=== PATIENT | female | born 1955 | race Caucasian/White ===

== ENCOUNTER → 2017-09-15 | Outpatient (CLI) | payer BC, OTHER ==
[~2017-09-15] MED LIST: ACET-1138 PO; ACET-1256 PO; APRE1TAB3 PO; ASPEC81 PO; AUGMENTIN PO; CHOL1000 PO; CHOL100010 PO; CLB/200 PO; CLC100 PO; CRS/10 PO; HYDR200T5 PO; IRON TAB PO; LORA-741 PO; MUCINEX PO; OXYSR10 PO; RXC5 PO
[2017-09-16 15:54] LABS: COMPLEMENT C3 TC 44859W 151 MG/DL (90-180); COMPLEMENT C4 TC 44982E 35 MG/DL (16-47)
== END | disposition home or self-care (01) ==
LOC: C.LAB 10:06
PROVIDERS: ATTEND Internal Medicine Rheumatology
DX: R79.89 Other specified abnormal findings of blood chemistry (principal); R53.83 Other fatigue; L40.59 Other psoriatic arthropathy; Z51.81 Encounter for therapeutic drug level monitoring; Z79.899 Other long term (current) drug therapy; E55.9 Vitamin D deficiency, unspecified

== ENCOUNTER 2017-10-05 08:38 | Inpatient (IN) | payer BC, OTHER ==
[2017-09-15 10:34] VITALS: BMI 27.0
--- NOTE | 2017-09-15 11:06 | PAT Medication Instructions ---
Service Date Sep 15, 2017. Current Home Medication List Acetaminophen (Tylenol), 1,000 MG PO PRN Celecoxib (CeleBREX), 200 MG PO BID Cholecalciferol (Vitamin D3), 1 TAB PO BID Hydroxychloroquine Sulfate (Plaquenil), 200 MG PO BID Lorazepam (Ativan), 0.5 MG PO PRN Rosuvastatin Calcium (Crestor), 10 MG PO HS [Augmentin], 1 TAB PO BID [Iron Tab], 325 MG PO QAM [Mucinex], 1 TAB PO BID PRN for human resources recruiter Instructions For Your Scheduled Surgery -Contact your surgeon for instructions: Celecoxib (CeleBREX), 200 MG PO BID -Continue as directed: [Augmentin], 1 TAB PO BID [Mucinex], 1 TAB PO BID PRN for RN - Hold the following medications the morning of surgery: [Iron Tab], 325 MG PO QAM Cholecalciferol (Vitamin D3), 1 TAB PO BID - Take the following medications the morning of surgery with a sip of water: Lorazepam (Ativan), 0.5 MG PO PRN (if needed) Hydroxychloroquine Sulfate (Plaquenil), 200 MG PO BID Acetaminophen (Tylenol), 1,000 MG PO PRN (if needed, can be taken up to four hours before surgery) - Take the following medications as scheduled the night before surgery: Lorazepam (Ativan), 0.5 MG PO PRN (if needed) Hydroxychloroquine Sulfate (Plaquenil), 200 MG PO BID Rosuvastatin Calcium (Crestor), 10 MG PO HS Cholecalciferol (Vitamin D3), 1 TAB PO BID Acetaminophen (Tylenol), 1,000 MG PO PRN (if needed) If you have any questions please call us at [phone] or [phone] or [phone]
--- NOTE | 2017-09-15 11:51 | DIAGNOSTIC IMAGING REPORT ---
CHEST 2 VIEWS ROUTINE CLINICAL HISTORY: Preoperative chest COMPARISON STUDY: 02/27/2016 FINDINGS: The cardiac and mediastinal contours are normal. There is no evidence of focal pulmonary consolidation. There is no evidence of failure. There is a trace right pleural effusion as visualized on the lateral view..[ There is stable linear scarring in the subxiphoid portion of the chest as visualized in the lateral view. IMPRESSION: 1. Trace right pleural effusion 2. No evidence of failure 3. No evidence of focal pulmonary consolidation Electronically signed by: Faheem Swan M.D. 09/15/2017 11:50 AM Dictated Date/Time: 09/15/2017 11:48 AM
[2017-09-15 11:55] LABS: BASO % 0.3 %; BASO ABS # 0.02 K/uL (0-0.2); EOS % 1.3 %; HEMATOCRIT 39.9 % (37-47); HEMOGLOBIN 13.3 g/dL (12.0-16.0); IG# 0.02 K/uL (0.00-0.02); LYMPH % 19.3 %; LYMPH ABS # 1.49 K/uL (1.2-3.4); MEAN CELL VOLUME 82.4 fL (80-100); MEAN CORPUSCULAR HEMOGLOBIN 27.5 pg (25-34); MEAN CORPUSCULAR HGB CONC 33.3 g/dl (32-36); MEAN PLATELET VOLUME 9.7 fL (7.4-10.4); MONO ABS # 0.62 K/uL (0.11-0.59); NEUT % 70.8 %; NEUT ABS # 5.49 K/uL (1.4-6.5); PLATELET COUNT 323 K/uL (130-400); RED CELL DISTRIBUTION WIDTH CV 13.4 % (11.5-14.5); RED CELL DISTRIBUTION WIDTH SD 40.2 fL (36.4-46.3); WHITE BLOOD COUNT 7.74 K/uL (4.8-10.8)
[2017-09-15 12:04] LABS: ALBUMIN 3.7 gm/dl (3.4-5.0); CALCIUM 9.6 mg/dl (8.5-10.1); CREATININE 0.88 mg/dl (0.60-1.20); POTASSIUM 3.8 mmol/L (3.5-5.1)
[2017-09-15 12:10] LABS: PTT PATIENT 25.7 SECONDS (21.0-31.0)
[2017-09-15 13:02] LABS: HEMOGLOBIN A1C 5.9 % (4.5-5.6)
--- NOTE | 2017-09-15 16:34 | History and Physical ---
History & Physical Date of Service Sep 15, 2017. History & Physical PROCEDURE: Right knee replacement. HISTORY OF PRESENT ILLNESS: The patient is a dakota 62-year-old female who presents for preoperative evaluation prior to right knee replacement. She states she has had pain in this knee for several years now, which has gradually worsened. It has now gotten to the point that it is affecting her daily activities including walking, standing and going up and down steps. She has tried Tylenol, Celebrex, ibuprofen as well as topical Pennsaid with no relief. At this point in time, has failed conservative measures and would like to proceed with a right knee replacement. has also had previous knee arthroscopy. Underwent Left TKA in 2016 and is doing well. PAST MEDICAL HISTORY: 1. High cholesterol. 2. Anxiety. 3. History of sciatica. ALLERGIES: No known drug allergies. CURRENT MEDICATIONS: 1. Otezla 30 mg by mouth 2 times a day. 2. Celebrex 200 mg daily. 3. Vitamin D. 4. Ativan 0.5 mg as needed. 5. Crestor 10 mg daily. 6. Topical Pennsaid. 7. Tylenol Arthritis strength. PAST SURGICAL HISTORY: 1. Previous knee arthroscopy in 1994 and in 1996. 2. Cholecystectomy 2015. 3. Left TKA 2015 FAMILY HISTORY: Noncontributory. SOCIAL HISTORY: She denies a history of smoking or tobacco use. No alcohol consumption. REVIEW OF SYSTEMS: Otherwise negative. Please see HPI for pertinent positives. PHYSICAL EXAMINATION: GENERAL: [place] 62-year-old female in no acute distress, alert and oriented x3. HEENT: Normocephalic, atraumatic. CARDIAC: Regular rate and rhythm. No murmurs or gallops appreciated. Resting pulse 84 beats per minute. LUNGS: Clear to auscultation without rales or wheeze bilaterally. ABDOMEN: Soft, nontender. Bowel sounds present. EXTREMITIES: Right lower extremity is neurovascularly intact. Calves are soft and nontender. DP pulse +2. Demonstrates good quad tone. Straight leg raise without lag. No erythema or warmth. She has mild effusion. Positive crepitation with motion, range of motion is 0/5/120. She has diffuse tenderness to the knee which is greatest over the medial compartment and also has mild varus alignment. IMAGING: Right knee shows findings consistent with degenerative joint disease including joint space narrowing, subchondral sclerosis, and peripheral osteophytes noted which is greatest over the medial compartment. IMPRESSION: 1. Right knee degenerative joint disease. 2. Past medical history is as above. PLAN: Further care discussed with patient. At this point in time, she has failed conservative measures and would like to proceed with a Right knee replacement. We will place on aspirin 81 mg p.o. b.i.d. for a month postop. She otherwise has no other questions or concerns.
[~2017-10-05] VITALS: Ht 165.1 cm; Wt 74.3 kg
[2017-10-05] VITALS (7 sets, daily range): BP systolic 96–142; BP diastolic 60–85; PULSE 63–90; TEMP 36.4–36.8; O2SAT 93–100; Ht 165.1 cm; Wt 74.3 kg
[2017-10-05] MEDS: TRANEXAMIC ACID INJ 1,000 MG x 2 Bags IV SCH ×4 (06:30→11:02)
[~2017-10-05 08:38] MED LIST changes: -ACET-1138 PO; +ACETAMINOPHEN 500 MG TAB PO SCH; -APRE1TAB3 PO; -ASPEC81 PO; +BUPIVACAINE 0.25% 30 ML VIAL ONE; +BUPIVACAINE 0.5 % 5 MG/1 ML PF 10ML VIAL ONE; +CEFAZOLIN 1000MG IV PUSH 7.5 ML IV SCH; -CHOL100010 PO; -CLC100 PO; +CeleBREX 200 MG CAP PO SCH; +DEXAMETHASONE 4 MG TAB PO SCH; +FAMOTIDINE 20 MG TAB PO SCH; +GABAPENTIN 600 MG PO SCH; +LACTATED RINGER'S 1000ML 1,000 ML IV SCH; +LACTATED RINGER'S 1000ML IV SCH; +METOCLOPRAMIDE HCL 10 MG TAB PO SCH; -OXYSR10 PO; +ROPIVACAINE 5MG/ML 30 ML 150 MG, BUPIVACAINE 0.5% MPF INJ 30 ML, EpINEphrine HCL INJ 0.... INFIL SCH; -RXC5 PO
[2017-10-05] MEDS ORDERED: vitamin d PO (09:22)
[2017-10-05] MEDS ORDERED: EpHEDrine SULFATE INJ 50 MG/ML AMP IV PRN (09:45)
[2017-10-05] MEDS ORDERED: FENTANYL CITRATE INJ 50 MCG/1 ML 2 ML VIAL IV PRN (09:45)
[2017-10-05] MEDS ORDERED: ONDANSETRON INJ 2 MG/ML 2 ML VIAL IV PRN ×2 (09:45→13:00)
[2017-10-05] MEDS ORDERED: ATROPINE SULFATE 0.1 MG/ML 5ML SYR IV PRN (09:45)
--- NOTE | 2017-10-05 10:17 | History & Physical Bridge Note ---
H&P Re-Evaluation Bridge Note: I have examined the patient, reviewed the History & Physical and in the interval since the performance of the History & Physical I have noted the following changes of clinical significance: No changes noted
[2017-10-05] MEDS ORDERED: PROPOFOL IV EMULSION 10 MG/ML 20 ML VIAL IV ONE (10:47)
[2017-10-05] MEDS ORDERED: FENTANYL CITRATE INJ 50 MCG/1 ML 2 ML VIAL ONE (10:47)
[2017-10-05] MEDS ORDERED: MIDAZOLAM HCL 1 MG/ML 2ML VIAL ONE ×3 (10:48→11:42)
[2017-10-05] MEDS ORDERED: ORTHO JOINT ANESTHETIC ONE (10:50)
[2017-10-05] MEDS ORDERED: POVIDONE-IODINE OP SOLN 30 ML BTL ONE (10:51)
[2017-10-05] MEDS ORDERED: BACITRACIN 50000 UNIT VIAL ONE (10:51)
--- NOTE | 2017-10-05 12:15 | [facility] Post Operative Brief Note ---
Immediate Operative Summary Operative Date Oct 05, 2017. Pre-Operative Diagnosis Right Knee Degenerative Joint Disease Post-Operative Diagnosis Same as preop Procedure(s) Performed Right Total Knee Arthroplasty Surgeon Dr. Guaman Fiscal Analyst Surgeon(s) Marcello Laguerre PA-C Estimated Blood Loss 5ML Findings Consistent with Post-Op Diagnosis Specimens A. Right Knee Bone and Tissue Anesthesia Type MAC Spinal Regional Complication(s) none Disposition Disposition: Recovery Room / PACU
--- NOTE | 2017-10-05 12:16 | [facility] Operative Report ---
Operative Report Operative Date Oct 05, 2017. Pre-Operative Diagnosis Right Knee Degenerative Joint Disease Post-Operative Diagnosis Same as preop Procedure(s) Performed Right Total Knee Arthroplasty utilizing 6 Alex [employer] Nephew journey to patient-matched total knee arthroplasty size 6 femur 5 tibia 15 Mary [address] Guaman Corral Boss Surgeon(s) Marcello Laguerre PA-C Estimated Blood Loss 5ML Findings Patient presents with severe end-stage tricompartmental degenerative joint disease with subchondral cystic changes sclerosus osteophytes marginal osteophytes [id number] medial compartment Specimens A. Right Knee Bone and Tissue Anesthesia Type MAC Spinal Regional Complication(s) none Disposition Recovery Room / PACU Indications Patient presents with severe end-stage DJD subchondral sclerosis cystic changes marginal osteophytes unresponsive conservative therapy including injections anti -inflammatories Roto-Rest activity modification patient presents for total knee arthroplasty Description of Procedure After proper prepping and draping of the Right lower extremity anterior midline incision was made over the region of the extensor extensor mechanism after meticulous hemostasis was obtained and maintained in subcutaneous tissues a medial parapatellar incision was made The patella was subluxed lateralward the medial lateral gutter were cleaned from any hypertrophic synovitis and scar tissue of the distal femoral block was placed and the distal femoral osteotomy cut was made subsequently the chamfers anterior and posterior osteotomy cuts were made utilizing the 4-in-1 block the tibia was subsequently subluxed anteriorward medial and ateral meniscal remnants were excised in their entirety remnants of the anterior and posterior cruciate ligaments were excised in their entirety excellent exposure of the proximal tibia was obtained the tibial osteotomy guide was placed on the proximal tibial osteotomy cut was made once again the knee was irrigated with copious amounts of sterile saline solution the patella was subsequently everted lateralward thickened scar tissue around the patella was removed the patella was subsequently cut utilizing a freehand technique and was drilled prepared for final preparation and placement of patella socially flexion-extension gaps were checked and the equal and symmetric trials were placed to the appropriate femoral and tibial trials with poly-spacer being placed for equal flexion and extension gaps and full range of motion including extension to 0 and flexion to 140 the trial components after having been taken to recovery range of motion was subsequently removed meticulous hemostasis was obtained and maintained subsequently a knee block injection of joint cocktail including ropivacaine 0.5% 150 mg. Bupivacaine 0.5 % epinephrine 1-200,030 mL's toradol 30 mg dexamethasone 4 mg ketamine 10 mg clonidine 100 micrograms normal saline solution 30 mg was infiltrated into the soft tissues of the posterior knee medial lateral gutters and periosteal synovium special attention was paid to protect neurovascular structures at all times subsequently trial components having been removed the knee was irrigated with sterile saline solution. debris was removed the proximal tibia was subsequently prepared and was made ready for the placement of the tibial component tibial component was also cemented and tamped into position the femoral component was subsequently placed and cemented in the position the patellar component was subsequently cemented in position because hemostasis once again obtained and maintained wound having been thoroughly irrigated with debridement and debridement lavage was performed as well as a medial parapatellar incision closed with #1 Vicryl in interrupted fashion subcutaneous was closed with #2 Vicryl skin was closed with skin clips. PA-C was necessary for prepping and drapping as well as wound closure of deep fascia Sub cutaneous tissue and skin and was necessary for the case. A sterile compressive dressing was placed patient was taken to recovery in stable condition of report dictated by Deniz I attest to the content of the Intraoperative Record and any orders documented therein. Any exceptions are noted below. I attest to the content of the Intraoperative Record and any orders documented therein. Any exceptions are noted below.
[2017-10-05] MEDS ORDERED: ALUMINUM/MAGNESIUM/SIMETH (MAALOX MAX) 30 ML UDC PO PRN (13:00)
[2017-10-05] MEDS ORDERED: MoRPHine SULFATE 2 MG/ML CARP IV PRN (13:00)
[2017-10-05] MEDS ORDERED: MAGNESIUM HYDROXIDE SUSP 30 ML UDC PO PRN (13:00)
[2017-10-05] MEDS ORDERED: LORAZEPAM INJ 0.5 MG in SYRINGE 0.75 ML IV PRN (13:00)
--- NOTE | 2017-10-05 13:25 | DIAGNOSTIC IMAGING REPORT ---
R KNEE 2 VIEWS ROUTINE CLINICAL HISTORY: Degenerative arthritis POSTOP STUDY COMPARISON: None. DISCUSSION: There are postsurgical changes of a total right knee arthroplasty and patellar resurfacing. Overlying skin ann and surgical drains are evident. There is air in soft tissues consistent with recent surgery. The femoral tibial components appear well seated. IMPRESSION: Postsurgical changes of a total right knee arthroplasty. Electronically signed by: Faheem Swan M.D. 10/05/2017 1:24 PM Dictated Date/Time: 10/05/2017 1:23 PM
--- NOTE | 2017-10-05 13:38 | Anesthesiology Progress Note ---
Anesthesia Post Op Note Date & Time Oct 05, 2017 at 13:38 Vital Signs Pain Intensity: 0 Vital Signs Past 12 Hours Date Time Temp Pulse Resp B/P (MAP) Pulse Ox O2 Delivery O2 Flow Rate FiO2 10/05/17 13:25 82 16 125/78 100 Nasal Cannula 2 10/05/17 13:15 37.4 82 16 127/65 100 Nasal Cannula 2 10/05/17 13:05 81 12 130/75 99 Nasal Cannula 2 10/05/17 12:55 79 12 120/68 100 Oxymask 8 10/05/17 12:45 36.1 84 16 140/66 98 Oxymask 8 10/05/17 09:27 36.8 90 16 142/85 93 Room Air Notes Mental Status: alert / awake / arousable, participated in evaluation Pt Amnestic to Procedure: Yes Nausea / Vomiting: adequately controlled Pain: adequately controlled Airway Patency, RR, SpO2: stable & adequate BP & HR: stable & adequate Hydration State: stable & adequate Neuraxial Anesthesia: was administered, sensory block is resolving Anesthetic Complications: no major complications apparent
[2017-10-05] MEDS: ACETAMINOPHEN 500 MG TAB PO SCH ×2 (16:11→21:03)
[2017-10-05] MEDS: D5W AND 1/2NSS + 20MEQ KCL 1,000 ML IV SCH (16:11)
[2017-10-05] MEDS: FERROUS GLUCONATE 324 MG TAB PO SCH (17:59)
[2017-10-05] MEDS: OXYCODONE HCL IR 5 MG TAB (IMMEDIATE RELEASE) PO PRN (20:08)
[2017-10-05] MEDS: CEFAZOLIN IV 1,000 MG in SYRINGE 0 ML IV SCH (20:08)
[2017-10-05] MEDS: ROSUVASTATIN CALCIUM 10 MG TAB PO SCH (21:01)
[2017-10-05] MEDS: ASPIRIN 81 MG ECTAB PO SCH (21:01)
[2017-10-05] MEDS: SENNA 8.6 MG TAB PO SCH (21:01)
[2017-10-05] MEDS: CeleBREX 200 MG CAP PO SCH (21:02)
[2017-10-05] MEDS: DOCUSATE SODIUM 100 MG CAP PO SCH (21:02)
[2017-10-06] MEDS: D5W AND 1/2NSS + 20MEQ KCL 1,000 ML IV SCH ×2 (00:35→10:25)
[2017-10-06] MEDS: OXYCODONE HCL IR 5 MG TAB (IMMEDIATE RELEASE) PO PRN ×2 (00:35→08:38)
[2017-10-06] MEDS: CEFAZOLIN IV 1,000 MG in SYRINGE 0 ML IV SCH (03:50)
[2017-10-06] MEDS: ACETAMINOPHEN 500 MG TAB PO SCH ×3 (05:31→21:31)
[2017-10-06 05:44] LABS: HEMATOCRIT 31.8 % (37-47); HEMOGLOBIN 10.7 g/dL (12.0-16.0); MEAN CELL VOLUME 80.9 fL (80-100); MEAN CORPUSCULAR HEMOGLOBIN 27.2 pg (25-34); MEAN CORPUSCULAR HGB CONC 33.6 g/dl (32-36); MEAN PLATELET VOLUME 9.4 fL (7.4-10.4); PLATELET COUNT 225 K/uL (130-400); RED CELL DISTRIBUTION WIDTH CV 13.5 % (11.5-14.5); RED CELL DISTRIBUTION WIDTH SD 40.2 fL (36.4-46.3); WHITE BLOOD COUNT 13.15 K/uL (4.8-10.8)
[2017-10-06 06:12] LABS: CALCIUM 8.8 mg/dl (8.5-10.1); CREATININE 0.81 mg/dl (0.60-1.20); POTASSIUM 4.4 mmol/L (3.5-5.1)
[2017-10-06 07:25] VITALS: BP 106/66; PULSE 69; TEMP 36.5; O2SAT 100
--- NOTE | 2017-10-06 08:00 | Orthopedic Progress Note ---
Orthopedic Progress Note Date of Service Oct 06, 2017. Subjective Post OP Day: 1 Reports: feeling well, Denies: chest pain, SOB, nausea / vomiting, light headedness, calf pain Objective calves soft nontender, N/V intact, capillary refill less than 2 sec., dressing C /D/I, A&O x3, toes mobile, hemovac drainage (75/125CC PER SHIFT) Date Time Temp Pulse Resp B/P (MAP) Pulse Ox O2 Delivery O2 Flow Rate FiO2 10/05/17 23:25 Room Air 10/05/17 22:35 36.4 63 16 120/67 (84) 97 Room Air 10/05/17 16:58 36.4 74 16 97/60 (72) 100 Nasal Cannula 2.0 10/05/17 15:58 36.5 70 16 96/60 (72) 100 Nasal Cannula 2.0 10/05/17 15:15 Nasal Cannula 2.0 10/05/17 15:05 36.4 73 16 98/62 (74) 99 Nasal Cannula 2.0 10/05/17 14:30 77 16 117/75 (89) 98 3.0 10/05/17 14:00 97 Nasal Cannula 2.0 10/05/17 14:00 36.6 84 16 123/69 (87) 99 Nasal Cannula 2.0 10/05/17 14:00 Nasal Cannula 2.0 10/05/17 13:45 82 16 110/68 100 Nasal Cannula 2 10/05/17 13:35 82 16 109/78 100 Nasal Cannula 2 10/05/17 13:25 82 16 125/78 100 Nasal Cannula 2 10/05/17 13:15 37.4 82 16 127/65 100 Nasal Cannula 2 10/05/17 13:05 81 12 130/75 99 Nasal Cannula 2 10/05/17 12:55 79 12 120/68 100 Oxymask 8 10/05/17 12:45 36.1 84 16 140/66 98 Oxymask 8 10/05/17 09:27 36.8 90 16 142/85 93 Room Air Laboratory Results 24 Hours: Test 10/06/17 05:12 Hematocrit 31.8 % Hemoglobin 10.7 g/dL Assessment & Plan Assessment: POD#1 SP RIGHT TKA Plan: PT/OT DVT PROPH- ASA 81MG BID PAIN MANAGEMENT- TYLENOL, ZOHREH DC PLANNING- DC TUESDAY WITH OUTPATIENT PT
[2017-10-06] MEDS: MULTIVITAMIN TAB PO SCH (08:38)
[2017-10-06] MEDS: DOCUSATE SODIUM 100 MG CAP PO SCH ×2 (08:38→21:29)
[2017-10-06] MEDS: CeleBREX 200 MG CAP PO SCH ×2 (08:38→21:29)
[2017-10-06] MEDS: FERROUS GLUCONATE 324 MG TAB PO SCH ×3 (08:38→18:36)
[2017-10-06] MEDS: ASPIRIN 81 MG ECTAB PO SCH ×2 (08:38→21:29)
--- NOTE | 2017-10-06 10:18 | Anesthesiology Progress Note ---
Anesthesia Post Op Note Date & Time Oct 06, 2017 at 10:17 Vital Signs Vital Signs Past 12 Hours Date Time Temp Pulse Resp B/P (MAP) Pulse Ox O2 Delivery O2 Flow Rate FiO2 10/06/17 07:25 36.5 69 16 106/66 (79) 100 Room Air 10/06/17 07:15 Room Air 10/05/17 23:25 Room Air 10/05/17 22:35 36.4 63 16 120/67 (84) 97 Room Air Notes Mental Status: alert / awake / arousable, participated in evaluation Pt Amnestic to Procedure: Yes Nausea / Vomiting: adequately controlled Pain: adequately controlled Airway Patency, RR, SpO2: stable & adequate BP & HR: stable & adequate Hydration State: stable & adequate Neuraxial Anesthesia: sensory block resolved Anesthetic Complications: no major complications apparent
[2017-10-06 10:56] VITALS: BP 114/69; PULSE 76; TEMP 36.6; O2SAT 99
[2017-10-06] MEDS: TRAMADOL HCL 50 MG TAB PO PRN ×3 (13:02→23:46)
[2017-10-06 15:20] VITALS: BP 112/70; PULSE 76; TEMP 36.5; O2SAT 100
[2017-10-06 16:30] VITALS: O2SAT 100
--- NOTE | 2017-10-06 17:00 | Discharge Instructions ---
Discharge Instructions Date of Service Oct 06, 2017. Admission Reason for Admission: Right Knee Osteoarthritis Discharge Discharge Diagnosis / Problem: Right knee osteoarthritis Discharge Goals Goal(s): Decrease discomfort, Improve function, Increase independence Activity Recommendations Activity Limitations: as noted below Weightbearing Status: Right weightbearing (as tolerated) . Instructions / Follow-Up Instructions / Follow-Up ACTIVITY RECOMMENDATIONS: SELF CARE INSTRUCTIONS AFTER TOTAL KNEE REPLACEMENT A. You may need to continue a physical therapy program after discharge from the hospital. There are several options available to you. Your doctor will assist you in selecting the best one for you. 1. An out-patient facility 2 to 3 times a week for therapy or home therapy. 2. Continue working on all exercises taught to you in the hospital. Your goals should be to increase bending of your knee to 90 degrees and beyond and to fully straighten your knee. B. You may progress at your own pace from walking with a walker or crutches to a cane; then to no assistive devices. C. Make walking a part of your daily routine. Be up as much as comfortable with rest periods throughout the day. Rest with leg elevation is very important. Use the ice wrap frequently for the first 3-4 weeks. D. There are no restrictions on activities. You may ride in a car, shop, participate in manager critical care unit and all social activities. E. Wear the long elastic stockings (JOANIE hose) 20 hours a day for 2 weeks after surgery. They can be removed several times a day for laundering and for a bath. F. You may shower, no tub baths until cleared by your doctor. SPECIAL CARE INSTRUCTIONS: VERY IMPORTANT TO READ AND REVIEW A. There are a few signs you need to watch for after you are home. Call [facility] if you notice any of the followin. Increased severe knee pain. Some pain is expected especially when you exercise. 2. Increased swelling in your leg or knee; pain or swelling of the calf muscle in either lower leg. 3. Any fluid drainage from the incision. 4. Shortness of breath or chest pain. B. Please call [facility] at if you have any concerns or questions about your operation or recovery. The doctor or his nurse will return your call promptly. C. You must take antibiotics before dental work, bladder, bowel or other surgery. Your doctor will provide you with a permanent care to carry describing this precaution. IMPORTANT: * REMEMBER TO TAKE ASPIRIN, 81 MG, TWICE DAILY FOR 4 WEEKS UNLESS OTHERWISE DIRECTED. THIS IS YOUR BLOOD THINNER. * HIGH RISK PATIENTS MAY BE PRESCRIBED A STRONGER BLOOD THINNER. THIS WILL BE PROVIDED AT DISCHARGE. * CALL IF INCREASED PAIN, REDNESS, DRAINAGE OR FEVER GREATER THAT 101. * WEAR JOANIE HOSE 20 HOURS PER DAY FOR 2 WEEKS. * YOU MAY HAVE A LARGE BAND-AID LIKE DRESSING (SILVERON). THIS WILL REMAIN ON YOUR INCISION FOR 7 DAYS, THEN CAN BE REMOVED. IF INCISION IS LEAKING THROUGH DRESSING, CALL THE OFFICE . DERMABOND Prineo- This is a mesh tape dressing that is covered with glue. It should remain in place until the incision is properly healed, usually 10-14 days. This dressing is designed to naturally slough off. You may trim the excess mesh tape as it peels off. Incision may be briefly wet in a shower. Dry immediately by blotting with a clean, dry towel. Do not bath or swim until instructed by your doctor. Do not scratch, rub, or pick at the dressing. Do not apply any topical ointments or lotions until dressing is completely removed and/or instructed by your doctor. There may be a small piece of suture material at one end of your incision. Do not pull or trim this. If it is bothersome or catching on clothing, you may cover it with a band-aid. FOLLOW UP VISIT: If appointment is not already scheduled: Please call [facility] to make a follow-up appointment for 2 weeks after your surgery at . Current Hospital Diet Patient's current hospital diet: Regular Diet Discharge Diet Recommended Diet: Regular Diet Procedures Procedures Performed: Right Total Knee Arthroplasty Pending Studies Studies pending at discharge: no Laboratory Results Hemoglobin A1c Test 09/15/17 11:19 Range/Units Estimated Average Glucose 123 mg/dl Hemoglobin A1c 5.9 H 4.5-5.6 % Medical Emergencies . Who to Call and When: Medical Emergencies: If at any time you feel your situation is an emergency, please call 911 immediately. . Non-Emergent Contact Non-Emergency issues call your: Primary Care Provider, Surgeon . "Provider Documentation" section prepared by Sal Puente. . VTE Core Measure Inpt VTE Proph given/why not?: Other Anticoagulation (ASA 81mg po bid x 1 month ), T.EZan Stockings, SCD's [place] Drug Monitoring Program Search Results: patient reviewed within database, no issues identified
[2017-10-06] MEDS: ROSUVASTATIN CALCIUM 10 MG TAB PO SCH (21:29)
[2017-10-06] MEDS: SENNA 8.6 MG TAB PO SCH (21:29)
[2017-10-06 22:42] VITALS: BP 124/73; PULSE 83; TEMP 36.8; O2SAT 98
[2017-10-07] MEDS: TRAMADOL HCL 50 MG TAB PO PRN ×2 (04:04→11:03)
[2017-10-07] MEDS: ACETAMINOPHEN 500 MG TAB PO SCH (05:54)
[2017-10-07 06:36] VITALS: BP 122/72; PULSE 81; TEMP 36.5; O2SAT 98
--- NOTE | 2017-10-07 07:00 | Orthopedic Progress Note ---
Orthopedic Progress Note Date of Service Oct 07, 2017. Subjective Post OP Day: 2 Reports: feeling well, pain controlled w PO medications, Denies: complaints, chest pain, SOB, nausea / vomiting, light headedness, calf pain Objective calves soft nontender, N/V intact, capillary refill less than 2 sec., dressing C /D/I (silverlon intact), A&O x3, toes mobile Date Time Temp Pulse Resp B/P (MAP) Pulse Ox O2 Delivery O2 Flow Rate FiO2 10/07/17 06:36 36.5 81 16 122/72 (89) 98 Room Air 10/06/17 23:40 Room Air 10/06/17 22:42 36.8 83 18 124/73 (90) 98 Room Air 10/06/17 16:30 100 Room Air 10/06/17 15:20 36.5 76 16 112/70 (84) 100 Room Air 10/06/17 10:56 36.6 76 16 114/69 (84) 99 Room Air 10/06/17 07:25 36.5 69 16 106/66 (79) 100 Room Air 10/06/17 07:15 Room Air Assessment & Plan Assessment: POD#2 SP RIGHT TKA Plan: PT/OT DVT PROPH- ASA 81MG BID PAIN MANAGEMENT- TYLENOL, ZOHREH DC PLANNING- DC TUESDAY WITH OUTPATIENT PT Discharge Planning Discharge Planning: home with oppt DVT Prophylaxis: TEDs, SCDs, ASA
[2017-10-07] MEDS ORDERED: ASPEC81 PO (07:05)
[2017-10-07] MEDS ORDERED: ONDA8TAB6 PO (07:05)
[2017-10-07] MEDS ORDERED: ACET-1256 PO (07:05)
[2017-10-07] MEDS ORDERED: RXC5 PO ×2 (07:05→07:13)
[2017-10-07] MEDS ORDERED: ULT50X PO (07:05)
[2017-10-07] MEDS ORDERED: CLB/200 PO (07:05)
[2017-10-07] MEDS ORDERED: CLC100 PO (07:05)
[2017-10-07] MEDS: FERROUS GLUCONATE 324 MG TAB PO SCH (08:24)
[2017-10-07] MEDS: MULTIVITAMIN TAB PO SCH (08:25)
[2017-10-07] MEDS: DOCUSATE SODIUM 100 MG CAP PO SCH (08:26)
[2017-10-07] MEDS: CeleBREX 200 MG CAP PO SCH (08:26)
[2017-10-07] MEDS: ASPIRIN 81 MG ECTAB PO SCH (08:27)
[2017-10-07 09:39] VITALS: O2SAT 97
--- NOTE | 2017-10-07 10:41 | Discharge Summary ---
Orthopedic Discharge Summary Admission Date/Reason Oct 05, 2017 at 10:15 Right Knee Osteoarthritis. Discharge Date/Disposition Oct 07, 2017 Home Diagnosis Principal Diagnosis: Right Knee Djd Secondary Diagnoses/Problems: High cholesterol. Anxiety. History of sciatica Procedure(s) Performed Right TKA Medication Reconciliation New Medications: Ondansetron Hcl (Zofran) 8 Mg Tab 8 MG PO Q8 PRN for Nausea, #20 TAB Aspirin (Aspirin EC Low Dose) 81 Mg Ectab 81 MG PO BID for 30 Days, #60 TAB Docusate Sodium (Docusate Sodium) 100 Mg Cap 100 MG PO BID for 10 Days, #20 CAP Oxycodone HCl (Oxycodone HCl) 5 Mg Tab 5-10 MG PO q4-6 hours PRN for Pain, #60 TAB Tramadol HCl (Tramadol HCl) 50 Mg Tab 50-100 MG PO Q4H PRN for Pain, #90 TAB Changed Medications: Acetaminophen (Tylenol) 500 Mg Tab 1000 MG PO Q8 for Pain, #63 TAB (Changed from: PRN) Continued Medications: Celecoxib (CeleBREX) 200 Mg Cap 200 MG PO BID for 30 Days, #60 CAP (This prescription has been renewed) Lorazepam (Ativan) 0.5 Mg Tab 0.5 MG PO PRN, TAB Rosuvastatin Calcium (Crestor) 10 Mg Tab 10 MG PO HS, TAB [Iron Tab] () 325 MG PO QAM [vitamin d] () 30273 UNITS PO WK Discontinued Medications: Hydroxychloroquine Sulfate (Plaquenil) 200 Mg Tab 200 MG PO BID, TAB Admission Physical Exam As per Admitting History & Physical. Hospital Course The Patient had an uneventful hospital course. Labs remained stable- lowest hemoglobin recorded: 10.7 . Pain controlled on oral medications. Participated in PT with ambulation distance of 560 feet. ROM of operative knee reached 97 degrees. Drainage output totaled 475 cc prior to discontinuation. Patient did not have a reported bowel movement. Incision remained clean/dry/intact. DVT prophylaxis with Aspirin EC 81mg BID x 30 days/Isaias stockings. Patient discharged home with Outpatient PT in stable condition. Please refer to daily progress notes for further details. Discharge Instructions Please refer to the electronic Patient Visit Report (Discharge Instructions) for additional information.
[2017-10-07 11:55] VITALS: BP 122/72; PULSE 81; TEMP 36.5; O2SAT 97
== END 2017-10-07 12:48 | disposition home or self-care (01) | DRG 470 ==
LOC: C.ACU 08:38 → C.3E 10:15 → ENRESERV 13:44
PROVIDERS: ADMIT Orthopaedic Surgery; ATTEND Orthopaedic Surgery
PROC: 0SRC0J9 Replacement of Right Knee Joint with Synthetic Substitute, Cemented, Open Approach (ICD-10-PCS; principal; 2017-10-05 11:30)
DX: M17.11 Unilateral primary osteoarthritis, right knee (principal); L40.50 Arthropathic psoriasis, unspecified; E78.00 Pure hypercholesterolemia, unspecified; F41.9 Anxiety disorder, unspecified; Z86.39 Personal history of other endocrine, nutritional and metabolic disease; Z96.652 Presence of left artificial knee joint; Z90.49 Acquired absence of other specified parts of digestive tract; Z98.890 Other specified postprocedural states; Z79.1 Long term (current) use of non-steroidal anti-inflammatories (NSAID); Z79.899 Other long term (current) drug therapy